=== PATIENT | male | born 2000 | race Two or more races ===

== ENCOUNTER 2022-03-25 00:18 | Emergency (ER) | payer BC ==
[~2022-03-25] VITALS: Ht 170.2 cm; Wt 68.0 kg
[2022-03-25] MEDS ORDERED: INTESTINEX680 M1 PO (05:38)
[2022-03-25] MEDS ORDERED: CLINDAMYCIN HC300 MG PO (05:38)
[2022-03-25] MEDS ORDERED: DICLOFENAC POTA50 MG PO (05:38)
== END 2022-03-25 05:46 | disposition home or self-care (01) ==
LOC: ER 00:18
DX: S01.511A Laceration without foreign body of lip, initial encounter (principal); W19.XXXA Unspecified fall, initial encounter; Y93.9 Activity, unspecified; Y92.9 Unspecified place or not applicable; S09.90XA Unspecified injury of head, initial encounter; Z88.1 Allergy status to other antibiotic agents